=== PATIENT | male | born 1995 | race Two or more races ===

== ENCOUNTER 2021-10-01 14:37 | Emergency (ER) | payer OTHER ==
[~2021-10-01] VITALS: Ht 170.2 cm; Wt 63.5 kg
[2021-10-01] MEDS ORDERED: ACID REDUCER20 M1 PO (15:29)
[2021-10-01] MEDS ORDERED: LEVSIN/SL0.125 MG SL (19:09)
[2021-10-01] MEDS ORDERED: PEPCID AC20 MG PO (19:09)
== END 2021-10-01 20:42 | disposition home or self-care (01) ==
LOC: ER 14:37
DX: K29.60 Other gastritis without bleeding (principal); R11.10 Vomiting, unspecified